=== PATIENT | male | born 1945 | race Asian ===

== ENCOUNTER 2019-06-04 20:29 | Emergency (ER) | payer MEDICARE, MEDICAID ==
[~2019-06-04] VITALS: Ht 165.1 cm; Wt 53.5 kg
[2019-06-04 20:40] VITALS: BP_SYST 154
--- NOTE | 2019-06-04 20:42 | NUR ---
Patient triaged and placed in waiting room. VSS and patient appears in no acute distress at this time. Accompanied by family , awaiting available bed, and MD notified of need for MSE.
--- NOTE | 2019-06-05 01:05 | NUR ---
Patient left without being seen. No further treatment provided. ER MD aware
--- NOTE | 2019-06-05 01:05 | NUR ---
Called pt in x 3, no answer
== END 2019-06-05 01:05 | disposition left against medical advice (07) ==
LOC: SED 20:29
DX: I10 Essential (primary) hypertension (principal); M54.5 Low back pain; Z53.21 Procedure and treatment not carried out due to patient leaving prior to being seen by health care provider
CPT/HCPCS: 93005